=== PATIENT | male | born 1955 | race Caucasian/White ===

== ENCOUNTER 2021-06-23 06:43 | Outpatient (CLI) | payer BC ==
[2021-06-23 21:03] LABS: SARS-CoV-2 PCR by NAA Not Detected (NotDetected)
== END 2021-06-23 06:44 | disposition home or self-care (01) ==
LOC: CSHLAB 06:43
PROVIDERS: ATTEND Surgery
DX: Z20.822 Contact with and (suspected) exposure to COVID-19 (principal); C82.20 Follicular lymphoma grade III, unspecified, unspecified site
CPT/HCPCS: U0003; U0005

== ENCOUNTER 2022-06-12 10:28 | Outpatient (CLI) | payer BC ==
[2022-06-12] MEDS ORDERED: Iopamidol 300 61% 100 ML VIAL FS ONE (15:57)
== END 2022-06-12 10:29 | disposition home or self-care (01) ==
LOC: CSHCT 10:28
PROVIDERS: ATTEND Internal Medicine Hematology & Oncology
DX: C82.11 Follicular lymphoma grade II, lymph nodes of head, face, and neck (principal); R59.1 Generalized enlarged lymph nodes; N40.0 Benign prostatic hyperplasia without lower urinary tract symptoms; M79.89 Other specified soft tissue disorders
CPT/HCPCS: 71260; 74177; 82565; Q9967

== ENCOUNTER 2022-09-04 08:13 | Outpatient (CLI) | payer BC | END 2022-09-04 08:14 | disposition home or self-care (01) | LOC: CSHCT 08:13 | PROVIDERS: ATTEND Internal Medicine Hematology & Oncology | DX: C82.90 Follicular lymphoma, unspecified, unspecified site (principal); R59.0 Localized enlarged lymph nodes; R93.5 Abnormal findings on diagnostic imaging of other abdominal regions, including retroperitoneum | CPT/HCPCS: 71260; 74177; 82565 ==

== ENCOUNTER 2023-02-26 07:11 | Outpatient (CLI) | payer BC ==
[2023-02-26] MEDS ORDERED: Iopamidol 300 61% 100 ML VIAL FS ONE (12:41)
== END 2023-02-26 07:12 | disposition home or self-care (01) ==
LOC: CSHCT 07:11
PROVIDERS: ATTEND Internal Medicine Hematology & Oncology
DX: C82.11 Follicular lymphoma grade II, lymph nodes of head, face, and neck (principal); R59.0 Localized enlarged lymph nodes
CPT/HCPCS: 70491; 71260; 74177; 82565

== ENCOUNTER 2023-04-08 12:05 | Outpatient (CLI) | payer BC ==
[2023-04-08 13:55] LABS: Hematocrit 44.9 % (38.8-50.0); Mean Corpuscular HGB CONC 33.4 g/dL (32.0-36.0); Mean Corpuscular Hemoglobin 30.2 pg (27.0-33.0); Mean Corpuscular Volume 90.5 fl (81.2-95.1); Mean Platelet Volume 11.1 fl (7.4-10.4); Platelet Count 171 10x3/uL (150-450); Red Blood Cell (RBC) Count 4.96 10x6/uL (4.32-5.72)
[2023-04-08 14:28] LABS: Anion Gap 12 mmol/L (10-20); BUN (Urea Nitrogen) 13 mg/dL (8.4-25.7); Calc. Creatinine Clearance 0 mL/min (70-130); Calcium 9.1 mg/dL (7.8-10.44); Carbon Dioxide 26 mmol/L (23-31); Chloride 107 mmol/L (98-107); Estimated GFR 95; Glucose 102 mg/dL (80-115); Potassium 4.3 mmol/L (3.5-5.1); Sodium 141 mmol/L (136-145)
== END 2023-04-08 12:06 | disposition home or self-care (01) ==
LOC: CSHLAB 12:05
PROVIDERS: ATTEND Surgery
DX: Z01.818 Encounter for other preprocedural examination (principal); R59.0 Localized enlarged lymph nodes
CPT/HCPCS: 80048; 85027; 93005; 93010

== ENCOUNTER 2023-04-11 08:58 | Day surgery (SDC) | payer BC ==
[2023-04-01 10:59] VITALS: BMI 32.1
[2023-04-11] MEDS ORDERED: Bupivacaine 0.25% HCL 30 ML VIAL ONE (10:59)
[2023-04-11] MEDS ORDERED: Lidocaine 1% PF 5 ML VIAL ONE (11:01)
[2023-04-11] MEDS ORDERED: Ondansetron PF 4 MG/2 ML Vial ONE (11:01)
[2023-04-11] MEDS ORDERED: PROPOFOL 20 ML ONE (11:01)
[2023-04-11] MEDS ORDERED: Dexamethasone 4 mg/ml Vial ONE (11:01)
[2023-04-11] MEDS ORDERED: Midazolam HCl 2 mg/2 ml Vial ONE (11:01)
[2023-04-11] MEDS ORDERED: fentaNYL 50 mcg/mL 1 mL Vial ONE (11:01)
[2023-04-11] MEDS ORDERED: CEFAZOLIN 1 GM VIAL ONE ×2 (11:26)
[2023-04-11] MEDS ORDERED: ePHEDrine Sulfate 50 MG/10 ML VIAL ONE (11:40)
[2023-04-11] MEDS ORDERED: HYDROcodone/Acetaminophen 5/325 mg Tablet PO PRN ×2 (12:31)
[2023-04-11] MEDS ORDERED: Acetaminophen 325 MG TAB PO PRN (12:31)
[2023-04-11] MEDS ORDERED: HYDROcodone/Acetaminophen 5/325 mg Tablet ONE (12:55)
== END 2023-04-11 13:45 | disposition home or self-care (01) ==
LOC: CSHSDC 08:58
PROVIDERS: ATTEND Surgery
PROC: 07D63ZX Extraction of Left Axillary Lymphatic, Percutaneous Approach, Diagnostic (ICD-10-PCS; principal; 2023-04-11)
DX: R59.0 Localized enlarged lymph nodes (principal); I25.10 Atherosclerotic heart disease of native coronary artery without angina pectoris; E78.00 Pure hypercholesterolemia, unspecified; I10 Essential (primary) hypertension; I25.2 Old myocardial infarction; Z79.82 Long term (current) use of aspirin; Z79.899 Other long term (current) drug therapy; Z87.891 Personal history of nicotine dependence
CPT/HCPCS: 88184; 88307; 88341; 88342; J0665; J0690; J1100; J2250; J2405; J2704; J3010

== ENCOUNTER 2024-04-11 12:34 | Outpatient (CLI) | payer MEDICARE | END 2024-04-11 12:35 | disposition home or self-care (01) | LOC: CSHULT 12:34 | PROVIDERS: ATTEND Urology | DX: N28.1 Cyst of kidney, acquired (principal) | CPT/HCPCS: 76770 ==